=== PATIENT | male | born 1950 | race Two or more races ===

== ENCOUNTER 2020-01-27 14:34 | Inpatient (IN) | payer OTHER ==
[~2020-01-27] VITALS: Ht 170.2 cm; Wt 96.3 kg
[2020-01-27] MEDS ORDERED: METF-960 PO (14:59)
[2020-01-27 15:13] LABS: BASOPHILS % (AUTO) 0.3 % (0.0-2.0); EOSINOPHILS % (AUTO) 0 % (1.0-6.0); HEMATOCRIT 37.6 % (41-53); HEMOGLOBIN 12.6 g/dL (13.5-17.5); LYMPHOCYTES # (AUTO) 0.4 K/uL (1.0-4.8); LYMPHOCYTES % (AUTO) 7.4 % (22.0-44.0); MEAN CORPUSCULAR HGB CONC 33.6 G/dL (31.0-37.0); MEAN CORPUSCULAR VOLUME 89 fL (80-100); MONOCYTES # (AUTO) 0.4 K/uL (0.1-1.0); MONOCYTES % (AUTO) 7.3 % (2.0-9.0); NEUTROPHILS # (AUTO) 4.9 K/uL (1.8-7.7); PLATELET COUNT (AUTO) 231 K/uL (150-450); RED BLOOD CELL COUNT(AUTO) 4.22 MIL/uL (4.50-5.90); RED CELL DISTRIBUTION WIDTH 13.9 % (11.5-14.5)
[2020-01-27 15:28] LABS: D-DIMER 0.84 mg/L FEU (0.00-0.50); PROTHROMBIN TIME 10.6 SEC (9.4-11.6)
[2020-01-27] MEDS ORDERED: AZITHROMYCIN 500 MG/NS 250 ML IV ONE (15:30)
[2020-01-27] MEDS ORDERED: CefTRIAXone 1 GM/DEXTROSE 50 ML IV ONE (15:30)
[2020-01-27 15:35] LABS: ANION GAP 5 mmol/L (8-16); CALCIUM, TOTAL 7.5 mg/dL (8.8-10.5); CARBON DIOXIDE 27 mmol/L (22-29); CHLORIDE 102 mmol/L (98-107); CREATININE 1.02 mg/dL (0.60-1.30); GLUCOSE,RANDOM 195 mg/dL (70-110); POTASSIUM 4.1 mmol/L (3.5-5.1); SODIUM SERUM 134 mmol/L (136-145); UREA NITROGEN, BLOOD 23 mg/dL (7-18)
[2020-01-27 15:36] LABS: GLOMERULAR FILTR. RATE CALC > 60 mL/min (>60)
[2020-01-27 15:41] LABS: B-TYPE NATRIURETIC PEPTIDE 22 pg/mL (0-100)
[2020-01-27 16:00] LABS: ALANINE AMINOTRANSFERASE 40 U/L (12-78); ALBUMIN 2.5 g/dL (3.4-5.0); ALKALINE PHOSPHATASE 56 U/L (46-116); ASPARTATE AMINOTRANSFERASE 55 U/L (15-37); BILIRUBIN,TOTAL 0.7 mg/dL (0.1-1.0); CREATINE KINASE, TOTAL ONLY 295 U/L (39-308); FERRITIN 925 ng/mL (26-388); LACTATE DEHYDROGENASE 451 U/L (85-227); TOTAL PROTEIN, SERUM 6.7 g/dL (6.4-8.2)
[2020-01-27] MEDS ORDERED: ACETAMINOPHEN 500 MG TABLET PO ONE (16:30)
[2020-01-27] MEDS ORDERED: 0.9% SODIUM CHLORIDE 10 ML SYRINGE IVP PRN (16:45)
[2020-01-27] MEDS ORDERED: ACETAMINOPHEN 325 MG TABLET PO PRN ×2 (16:45→17:15)
[2020-01-27] MEDS ORDERED: DEXTROSE 50%-WATER 25 GM/50 ML SYRINGE IVP PRN (17:00)
[2020-01-27] MEDS ORDERED: BENZONATATE 100 MG CAPSULE PO PRN (17:00)
[2020-01-27] MEDS: DEXAMETHASONE SOD PHOS 4 MG/ML VIAL IVP SCH (17:45)
[2020-01-27 21:40] VITALS: BP 107/62
[2020-01-27] MEDS ORDERED: SODIUM CHLORIDE 0.9% 250 ML IV ONE ×2 (21:40→23:43)
[2020-01-27] MEDS: DOCUSATE SODIUM 100 MG CAPSULE PO SCH (22:31)
[2020-01-27] MEDS: ZINC SULFATE 220 MG CAPSULE PO SCH (22:31)
[2020-01-27] MEDS: HEPARIN SODIUM,PORCINE 5,000 UNITS/ML VIAL SQ SCH (22:31)
[2020-01-27] MEDS ORDERED: REMDESIVIR **INVESTIGATIONAL** 200 MG in SODIUM CHLORIDE 0.9% 210 ML IV ONE (23:00)
[2020-01-28 00:20] VITALS: BP 108/60
[2020-01-28 04:23] VITALS: BP 122/68
[2020-01-28] MEDS: INSULIN LISPRO 100 UNITS/ML SQ PRN ×4 (06:15→20:50)
[2020-01-28 07:40] VITALS: BP 110/61
[2020-01-28 08:37] LABS: BASOPHILS % (AUTO) 0.2 % (0.0-2.0); EOSINOPHILS % (AUTO) 0 % (1.0-6.0); HEMATOCRIT 37.5 % (41-53); HEMOGLOBIN 12.9 g/dL (13.5-17.5); LYMPHOCYTES # (AUTO) 0.6 K/uL (1.0-4.8); LYMPHOCYTES % (AUTO) 11.5 % (22.0-44.0); MEAN CORPUSCULAR HEMOGLOBIN 30.6 pg (26.0-34.0); MEAN CORPUSCULAR HGB CONC 34.4 G/dL (31.0-37.0); MEAN CORPUSCULAR VOLUME 89 fL (80-100); MONOCYTES # (AUTO) 0.3 K/uL (0.1-1.0); MONOCYTES % (AUTO) 5.8 % (2.0-9.0); NEUTROPHILS # (AUTO) 4.2 K/uL (1.8-7.7); NEUTROPHILS % (AUTO) 82.5 % (40.0-70.0); PLATELET COUNT (AUTO) 244 K/uL (150-450); RED BLOOD CELL COUNT(AUTO) 4.22 MIL/uL (4.50-5.90); RED CELL DISTRIBUTION WIDTH 14.2 % (11.5-14.5)
[2020-01-28] MEDS: HEPARIN SODIUM,PORCINE 5,000 UNITS/ML VIAL SQ SCH ×3 (08:40→23:40)
[2020-01-28] MEDS: DEXAMETHASONE SOD PHOS 4 MG/ML VIAL IVP SCH (08:40)
[2020-01-28] MEDS: DOCUSATE SODIUM 100 MG CAPSULE PO SCH ×2 (08:41→20:48)
[2020-01-28] MEDS: ZINC SULFATE 220 MG CAPSULE PO SCH ×2 (08:41→20:48)
[2020-01-28 09:21] LABS: ALANINE AMINOTRANSFERASE 38 U/L (12-78); ALBUMIN 2.3 g/dL (3.4-5.0); ALKALINE PHOSPHATASE 56 U/L (46-116); ANION GAP 6 mmol/L (8-16); ASPARTATE AMINOTRANSFERASE 43 U/L (15-37); BILIRUBIN,TOTAL 0.5 mg/dL (0.1-1.0); CALCIUM, TOTAL 7.5 mg/dL (8.8-10.5); CARBON DIOXIDE 27 mmol/L (22-29); CHLORIDE 105 mmol/L (98-107); CREATININE 0.79 mg/dL (0.60-1.30); GLUCOSE,RANDOM 300 mg/dL (70-110); POTASSIUM 4.7 mmol/L (3.5-5.1); SODIUM SERUM 138 mmol/L (136-145); TOTAL PROTEIN, SERUM 5.9 g/dL (6.4-8.2); UREA NITROGEN, BLOOD 23 mg/dL (7-18)
[2020-01-28 09:22] LABS: GLOMERULAR FILTR. RATE CALC > 60 mL/min (>60)
[2020-01-28 11:08] LABS: GLUCOMETER DEV NAME(LOC) 5S.2A; GLUCOSE,POINT OF CARE 263 MG/DL (70-110)
[2020-01-28 11:45] VITALS: BP 107/63
[2020-01-28] MEDS: AZITHROMYCIN 500 MG/NS 250 ML IV SCH (15:29)
[2020-01-28 16:00] VITALS: BP 117/73
[2020-01-28 16:28] LABS: APPEARANCE,URINE CLEAR (CLEAR); BILIRUBIN,URINE NEGATIVE (NEGATIVE); GLUCOSE, URINE (UA) >=1000 mg/dL (NEGATIVE); KETONES,URINE NEGATIVE (NEGATIVE); LEUKOCYTE ESTERASE ,URINE NEGATIVE (NEGATIVE); NITRATE,URINE NEGATIVE (NEGATIVE); OCCULT BLOOD,URINE NEGATIVE (NEGATIVE); PROTEIN,URINE SEE CONFIRM (NEGATIVE)
[2020-01-28 16:42] LABS: BACTERIA,URINE None Seen /HPF (None Seen); RBC,URINE None Seen /HPF (0-2); SQUAMOUS EPITHELIAL CELL,UR Few /LPF (None Seen); SULFOSALICYLIC ACID,URINE 1+ (Negative); WBC,URINE None Seen /HPF (0-5)
[2020-01-28 16:53] LABS: GLUCOMETER DEV NAME(LOC) 5N.3; GLUCOSE,POINT OF CARE 265 MG/DL (70-110)
[2020-01-28] MEDS: MetFORMIN HCL 500 MG TABLET PO SCH (17:21)
[2020-01-28 18:43] LABS: GLUCOMETER DEV NAME(LOC) 5S.2A; GLUCOSE,POINT OF CARE 285 MG/DL (70-110)
[2020-01-28 20:00] VITALS: BP 122/76
[2020-01-28] MEDS: REMDESIVIR **INVESTIGATIONAL** 100 MG in SODIUM CHLORIDE 0.9% 230 ML IV SCH (22:09)
[2020-01-29] VITALS (11 sets, daily range): BP systolic 100–124; BP diastolic 57–74
[2020-01-29] MEDS: INSULIN LISPRO 100 UNITS/ML SQ PRN ×4 (06:36→20:44)
[2020-01-29 07:50] LABS: BASOPHILS % (AUTO) 0.2 % (0.0-2.0); EOSINOPHILS % (AUTO) 0 % (1.0-6.0); HEMATOCRIT 38.5 % (41-53); HEMOGLOBIN 12.9 g/dL (13.5-17.5); LYMPHOCYTES # (AUTO) 0.7 K/uL (1.0-4.8); LYMPHOCYTES % (AUTO) 8.6 % (22.0-44.0); MEAN CORPUSCULAR HGB CONC 33.5 G/dL (31.0-37.0); MEAN CORPUSCULAR VOLUME 90 fL (80-100); MONOCYTES # (AUTO) 0.8 K/uL (0.1-1.0); MONOCYTES % (AUTO) 9.2 % (2.0-9.0); NEUTROPHILS # (AUTO) 7.1 K/uL (1.8-7.7); PLATELET COUNT (AUTO) 288 K/uL (150-450)
[2020-01-29 08:19] LABS: ALANINE AMINOTRANSFERASE 32 U/L (12-78); ALBUMIN 2.2 g/dL (3.4-5.0); ALKALINE PHOSPHATASE 49 U/L (46-116); ANION GAP 6 mmol/L (8-16); ASPARTATE AMINOTRANSFERASE 32 U/L (15-37); BILIRUBIN,TOTAL 0.4 mg/dL (0.1-1.0); C-REACTIVE PROTEIN QUANT 3.24 mg/dL (0.00-0.30); CALCIUM, TOTAL 7.6 mg/dL (8.8-10.5); CARBON DIOXIDE 26 mmol/L (22-29); CHLORIDE 106 mmol/L (98-107); CREATININE 0.81 mg/dL (0.60-1.30); GLUCOSE,RANDOM 255 mg/dL (70-110); POTASSIUM 4.5 mmol/L (3.5-5.1); SODIUM SERUM 138 mmol/L (136-145); TOTAL PROTEIN, SERUM 5.6 g/dL (6.4-8.2); UREA NITROGEN, BLOOD 28 mg/dL (7-18)
[2020-01-29 08:25] LABS: GLOMERULAR FILTR. RATE CALC > 60 mL/min (>60)
[2020-01-29] MEDS: MetFORMIN HCL 500 MG TABLET PO SCH ×2 (08:36→17:43)
[2020-01-29] MEDS: DOCUSATE SODIUM 100 MG CAPSULE PO SCH ×2 (08:37→20:38)
[2020-01-29] MEDS: HEPARIN SODIUM,PORCINE 5,000 UNITS/ML VIAL SQ SCH ×2 (08:37→16:01)
[2020-01-29] MEDS: ZINC SULFATE 220 MG CAPSULE PO SCH ×2 (08:37→20:38)
[2020-01-29] MEDS: DEXAMETHASONE SOD PHOS 4 MG/ML VIAL IVP SCH (08:37)
[2020-01-29 11:47] LABS: GLUCOMETER DEV NAME(LOC) 5S.2A; GLUCOSE,POINT OF CARE 281 MG/DL (70-110)
[2020-01-29] MEDS: AZITHROMYCIN 500 MG/NS 250 ML IV SCH (16:01)
[2020-01-29 21:04] LABS: GLUCOMETER DEV NAME(LOC) 5N.3; GLUCOSE,POINT OF CARE 283 MG/DL (70-110)
[2020-01-29 21:04] LABS: GLUCOMETER DEV NAME(LOC) 5N.3; GLUCOSE,POINT OF CARE 194 MG/DL (70-110)
[2020-01-29 21:04] LABS: GLUCOMETER DEV NAME(LOC) 5N.3; GLUCOSE,POINT OF CARE 214 MG/DL (70-110)
[2020-01-29] MEDS: REMDESIVIR **INVESTIGATIONAL** 100 MG in SODIUM CHLORIDE 0.9% 230 ML IV SCH (21:22)
[2020-01-29] MEDS ORDERED: SODIUM CHLORIDE 0.9% 250 ML IV ONE (22:46)
[2020-01-30] MEDS: HEPARIN SODIUM,PORCINE 5,000 UNITS/ML VIAL SQ SCH ×3 (00:13→17:06)
[2020-01-30 00:20] VITALS: BP 111/64
[2020-01-30 03:56] VITALS: BP 139/73
[2020-01-30] MEDS: INSULIN LISPRO 100 UNITS/ML SQ PRN ×4 (05:41→20:49)
[2020-01-30 06:37] LABS: GLUCOMETER DEV NAME(LOC) 5N.3; GLUCOSE,POINT OF CARE 136 MG/DL (70-110)
[2020-01-30 07:24] LABS: ALANINE AMINOTRANSFERASE 39 U/L (12-78); ALBUMIN 2.2 g/dL (3.4-5.0); ALKALINE PHOSPHATASE 50 U/L (46-116); ANION GAP 7 mmol/L (8-16); ASPARTATE AMINOTRANSFERASE 35 U/L (15-37); BILIRUBIN,TOTAL 0.6 mg/dL (0.1-1.0); CALCIUM, TOTAL 7.7 mg/dL (8.8-10.5); CARBON DIOXIDE 27 mmol/L (22-29); CHLORIDE 106 mmol/L (98-107); CREATININE 0.86 mg/dL (0.60-1.30); FERRITIN 807 ng/mL (26-388); GLUCOSE,RANDOM 148 mg/dL (70-110); POTASSIUM 3.7 mmol/L (3.5-5.1); SODIUM SERUM 140 mmol/L (136-145); TOTAL PROTEIN, SERUM 6.1 g/dL (6.4-8.2); UREA NITROGEN, BLOOD 24 mg/dL (7-18)
[2020-01-30 07:25] LABS: GLOMERULAR FILTR. RATE CALC > 60 mL/min (>60)
[2020-01-30 07:44] VITALS: BP 120/64
[2020-01-30] MEDS: MetFORMIN HCL 500 MG TABLET PO SCH ×2 (08:16→18:13)
[2020-01-30] MEDS: ZINC SULFATE 220 MG CAPSULE PO SCH ×2 (08:16→20:44)
[2020-01-30] MEDS: DEXAMETHASONE SOD PHOS 4 MG/ML VIAL IVP SCH (08:16)
[2020-01-30] MEDS: DOCUSATE SODIUM 100 MG CAPSULE PO SCH ×2 (08:16→20:44)
[2020-01-30 11:29] VITALS: BP 117/67
[2020-01-30 12:28] LABS: GLUCOMETER DEV NAME(LOC) 5S.2A; GLUCOSE,POINT OF CARE 210 MG/DL (70-110)
[2020-01-30 12:28] LABS: GLUCOMETER DEV NAME(LOC) 5S.2A; GLUCOSE,POINT OF CARE 169 MG/DL (70-110)
[2020-01-30 16:01] VITALS: BP 133/69
[2020-01-30] MEDS: AZITHROMYCIN 500 MG/NS 250 ML IV SCH (17:06)
[2020-01-30 17:30] LABS: GLUCOMETER DEV NAME(LOC) 5S.2B; GLUCOSE,POINT OF CARE 220 MG/DL (70-110)
[2020-01-30 20:17] VITALS: BP 129/75
[2020-01-30] MEDS: REMDESIVIR **INVESTIGATIONAL** 100 MG in SODIUM CHLORIDE 0.9% 230 ML IV SCH (22:01)
[2020-01-30] MEDS ORDERED: SODIUM CHLORIDE 0.9% 250 ML IV ONE (23:42)
[2020-01-31] VITALS (9 sets, daily range): BP systolic 103–133; BP diastolic 61–90
[2020-01-31 03:43] LABS: GLUCOMETER DEV NAME(LOC) 5S.2B; GLUCOSE,POINT OF CARE 225 MG/DL (70-110)
[2020-01-31 06:56] LABS: BASOPHILS % (AUTO) 0.2 % (0.0-2.0); EOSINOPHILS % (AUTO) 0.2 % (1.0-6.0); HEMATOCRIT 36.8 % (41-53); HEMOGLOBIN 12.5 g/dL (13.5-17.5); LYMPHOCYTES # (AUTO) 1.5 K/uL (1.0-4.8); LYMPHOCYTES % (AUTO) 17.6 % (22.0-44.0); MEAN CORPUSCULAR HEMOGLOBIN 30.2 pg (26.0-34.0); MEAN CORPUSCULAR HGB CONC 33.9 G/dL (31.0-37.0); MEAN CORPUSCULAR VOLUME 89 fL (80-100); MONOCYTES # (AUTO) 0.7 K/uL (0.1-1.0); MONOCYTES % (AUTO) 7.7 % (2.0-9.0); NEUTROPHILS # (AUTO) 6.3 K/uL (1.8-7.7); NEUTROPHILS % (AUTO) 74.3 % (40.0-70.0); PLATELET COUNT (AUTO) 350 K/uL (150-450); RED BLOOD CELL COUNT(AUTO) 4.13 MIL/uL (4.50-5.90)
[2020-01-31 07:34] LABS: ALANINE AMINOTRANSFERASE 80 U/L (12-78); ALBUMIN 2.4 g/dL (3.4-5.0); ALKALINE PHOSPHATASE 59 U/L (46-116); ANION GAP 6 mmol/L (8-16); ASPARTATE AMINOTRANSFERASE 96 U/L (15-37); BILIRUBIN,TOTAL 0.8 mg/dL (0.1-1.0); C-REACTIVE PROTEIN QUANT 2.21 mg/dL (0.00-0.30); CARBON DIOXIDE 28 mmol/L (22-29); CHLORIDE 104 mmol/L (98-107); CREATININE 0.91 mg/dL (0.60-1.30); FERRITIN 727 ng/mL (26-388); GLUCOSE,RANDOM 145 mg/dL (70-110); POTASSIUM 3.5 mmol/L (3.5-5.1); SODIUM SERUM 138 mmol/L (136-145); TOTAL PROTEIN, SERUM 6.4 g/dL (6.4-8.2); UREA NITROGEN, BLOOD 17 mg/dL (7-18)
[2020-01-31 07:38] LABS: GLOMERULAR FILTR. RATE CALC > 60 mL/min (>60)
[2020-01-31 07:46] LABS: GLUCOMETER DEV NAME(LOC) 5S.2B; GLUCOSE,POINT OF CARE 131 MG/DL (70-110)
[2020-01-31] MEDS: HEPARIN SODIUM,PORCINE 5,000 UNITS/ML VIAL SQ SCH ×3 (09:53→16:40)
[2020-01-31] MEDS: DOCUSATE SODIUM 100 MG CAPSULE PO SCH ×2 (09:53→20:33)
[2020-01-31] MEDS: MetFORMIN HCL 500 MG TABLET PO SCH ×2 (09:53→17:37)
[2020-01-31] MEDS: ZINC SULFATE 220 MG CAPSULE PO SCH ×2 (09:53→20:33)
[2020-01-31] MEDS: DEXAMETHASONE SOD PHOS 4 MG/ML VIAL IVP SCH (09:56)
[2020-01-31 12:29] LABS: GLUCOMETER DEV NAME(LOC) 5S.2B; GLUCOSE,POINT OF CARE 178 MG/DL (70-110)
[2020-01-31] MEDS: INSULIN LISPRO 100 UNITS/ML SQ PRN ×3 (12:35→20:45)
[2020-01-31] MEDS: AZITHROMYCIN 500 MG/NS 250 ML IV SCH (16:40)
[2020-02-01] VITALS: BP 126/67
[2020-02-01 04:00] VITALS: BP 137/74
[2020-02-01 05:56] LABS: ALANINE AMINOTRANSFERASE 111 U/L (12-78); ALBUMIN 2.4 g/dL (3.4-5.0); ALKALINE PHOSPHATASE 62 U/L (46-116); ANION GAP 6 mmol/L (8-16); ASPARTATE AMINOTRANSFERASE 100 U/L (15-37); BILIRUBIN,TOTAL 0.8 mg/dL (0.1-1.0); CARBON DIOXIDE 28 mmol/L (22-29); CHLORIDE 105 mmol/L (98-107); CREATININE 0.86 mg/dL (0.60-1.30); GLUCOSE,RANDOM 135 mg/dL (70-110); POTASSIUM 4.1 mmol/L (3.5-5.1); SODIUM SERUM 139 mmol/L (136-145); TOTAL PROTEIN, SERUM 6.8 g/dL (6.4-8.2); UREA NITROGEN, BLOOD 16 mg/dL (7-18)
[2020-02-01 06:12] LABS: GLOMERULAR FILTR. RATE CALC > 60 mL/min (>60)
[2020-02-01] MEDS: HEPARIN SODIUM,PORCINE 5,000 UNITS/ML VIAL SQ SCH ×4 (07:58→23:59)
[2020-02-01] MEDS: ZINC SULFATE 220 MG CAPSULE PO SCH ×2 (07:58→20:15)
[2020-02-01] MEDS: MetFORMIN HCL 500 MG TABLET PO SCH ×2 (07:58→17:20)
[2020-02-01] MEDS: DEXAMETHASONE SOD PHOS 4 MG/ML VIAL IVP SCH (07:59)
[2020-02-01] MEDS: DOCUSATE SODIUM 100 MG CAPSULE PO SCH ×2 (07:59→20:15)
[2020-02-01 08:22] VITALS: BP 122/71
[2020-02-01 08:46] LABS: GLUCOMETER DEV NAME(LOC) 5N.3; GLUCOSE,POINT OF CARE 180 MG/DL (70-110)
[2020-02-01 11:34] LABS: GLUCOMETER DEV NAME(LOC) 5S.2B; GLUCOSE,POINT OF CARE 122 MG/DL (70-110)
[2020-02-01] MEDS: INSULIN LISPRO 100 UNITS/ML SQ PRN ×3 (12:14→20:53)
[2020-02-01 12:20] VITALS: BP 132/68
[2020-02-01 16:09] VITALS: BP 120/67
[2020-02-01] MEDS: AZITHROMYCIN 500 MG/NS 250 ML IV SCH (17:20)
[2020-02-01 18:04] LABS: GLUCOMETER DEV NAME(LOC) 5N.1; GLUCOSE,POINT OF CARE 195 MG/DL (70-110)
[2020-02-01 20:00] VITALS: BP 122/62
[2020-02-01 20:24] LABS: GLUCOMETER DEV NAME(LOC) 5S.2B; GLUCOSE,POINT OF CARE 181 MG/DL (70-110)
[2020-02-01 20:32] LABS: GLUCOMETER DEV NAME(LOC) 5N.1; GLUCOSE,POINT OF CARE 163 MG/DL (70-110)
[2020-02-02 00:10] VITALS: BP 116/58
[2020-02-02 04:12] VITALS: BP 118/58
[2020-02-02 06:55] LABS: BASOPHILS % (AUTO) 0.3 % (0.0-2.0); EOSINOPHILS % (AUTO) 1.1 % (1.0-6.0); HEMATOCRIT 34.7 % (41-53); HEMOGLOBIN 11.5 g/dL (13.5-17.5); LYMPHOCYTES # (AUTO) 1.6 K/uL (1.0-4.8); LYMPHOCYTES % (AUTO) 22.9 % (22.0-44.0); MEAN CORPUSCULAR HEMOGLOBIN 29.6 pg (26.0-34.0); MEAN CORPUSCULAR HGB CONC 33.1 G/dL (31.0-37.0); MEAN CORPUSCULAR VOLUME 90 fL (80-100); MONOCYTES # (AUTO) 0.7 K/uL (0.1-1.0); MONOCYTES % (AUTO) 9.6 % (2.0-9.0); NEUTROPHILS # (AUTO) 4.5 K/uL (1.8-7.7); NEUTROPHILS % (AUTO) 66.1 % (40.0-70.0); PLATELET COUNT (AUTO) 373 K/uL (150-450); RED BLOOD CELL COUNT(AUTO) 3.88 MIL/uL (4.50-5.90)
[2020-02-02 07:13] LABS: GLUCOMETER DEV NAME(LOC) 5N.1; GLUCOSE,POINT OF CARE 94 MG/DL (70-110)
[2020-02-02 07:45] VITALS: BP 112/82
[2020-02-02 07:45] LABS: ALANINE AMINOTRANSFERASE 119 U/L (12-78); ALBUMIN 2.3 g/dL (3.4-5.0); ALKALINE PHOSPHATASE 56 U/L (46-116); ANION GAP 4 mmol/L (8-16); ASPARTATE AMINOTRANSFERASE 93 U/L (15-37); BILIRUBIN,TOTAL 0.7 mg/dL (0.1-1.0); C-REACTIVE PROTEIN QUANT 1.69 mg/dL (0.00-0.30); CALCIUM, TOTAL 8.4 mg/dL (8.8-10.5); CARBON DIOXIDE 30 mmol/L (22-29); CHLORIDE 104 mmol/L (98-107); CREATININE 0.78 mg/dL (0.60-1.30); FERRITIN 653 ng/mL (26-388); GLUCOSE,RANDOM 102 mg/dL (70-110); POTASSIUM 4.6 mmol/L (3.5-5.1); SODIUM SERUM 138 mmol/L (136-145); TOTAL PROTEIN, SERUM 6.2 g/dL (6.4-8.2); UREA NITROGEN, BLOOD 14 mg/dL (7-18)
[2020-02-02 07:46] LABS: GLOMERULAR FILTR. RATE CALC > 60 mL/min (>60)
[2020-02-02] MEDS: HEPARIN SODIUM,PORCINE 5,000 UNITS/ML VIAL SQ SCH ×3 (08:38→23:19)
[2020-02-02] MEDS: DEXAMETHASONE SOD PHOS 4 MG/ML VIAL IVP SCH (08:39)
[2020-02-02] MEDS: ZINC SULFATE 220 MG CAPSULE PO SCH ×2 (08:39→20:05)
[2020-02-02] MEDS: DOCUSATE SODIUM 100 MG CAPSULE PO SCH ×2 (08:40→20:05)
[2020-02-02] MEDS: MetFORMIN HCL 500 MG TABLET PO SCH ×2 (08:40→20:05)
[2020-02-02 11:40] VITALS: BP 119/64
[2020-02-02] MEDS: INSULIN LISPRO 100 UNITS/ML SQ PRN ×3 (11:52→20:21)
[2020-02-02 13:29] LABS: GLUCOMETER DEV NAME(LOC) 5N.1; GLUCOSE,POINT OF CARE 204 MG/DL (70-110)
[2020-02-02 15:39] VITALS: BP 115/67
[2020-02-02] MEDS: AZITHROMYCIN 500 MG/NS 250 ML IV SCH (16:22)
[2020-02-02 19:38] VITALS: BP 108/58
[2020-02-03 00:14] VITALS: BP 105/67
[2020-02-03 00:40] LABS: GLUCOMETER DEV NAME(LOC) 5N.1; GLUCOSE,POINT OF CARE 184 MG/DL (70-110)
[2020-02-03 00:40] LABS: GLUCOMETER DEV NAME(LOC) 5N.1; GLUCOSE,POINT OF CARE 154 MG/DL (70-110)
[2020-02-03 04:42] VITALS: BP 110/59
[2020-02-03 05:55] LABS: GLUCOMETER DEV NAME(LOC) 5N.3; GLUCOSE,POINT OF CARE 91 MG/DL (70-110)
[2020-02-03 07:31] LABS: ALANINE AMINOTRANSFERASE 162 U/L (12-78); ALBUMIN 2.7 g/dL (3.4-5.0); ALKALINE PHOSPHATASE 69 U/L (46-116); ANION GAP 8 mmol/L (8-16); ASPARTATE AMINOTRANSFERASE 112 U/L (15-37); BILIRUBIN,TOTAL 0.8 mg/dL (0.1-1.0); C-REACTIVE PROTEIN QUANT 1.05 mg/dL (0.00-0.30); CALCIUM, TOTAL 8.5 mg/dL (8.8-10.5); CARBON DIOXIDE 29 mmol/L (22-29); CHLORIDE 103 mmol/L (98-107); CREATININE 0.92 mg/dL (0.60-1.30); FERRITIN 736 ng/mL (26-388); GLUCOSE,RANDOM 97 mg/dL (70-110); POTASSIUM 3.7 mmol/L (3.5-5.1); SODIUM SERUM 140 mmol/L (136-145); TOTAL PROTEIN, SERUM 7.1 g/dL (6.4-8.2); UREA NITROGEN, BLOOD 18 mg/dL (7-18)
[2020-02-03 07:36] LABS: GLOMERULAR FILTR. RATE CALC > 60 mL/min (>60)
[2020-02-03 08:11] VITALS: BP 117/66
[2020-02-03] MEDS: ZINC SULFATE 220 MG CAPSULE PO SCH ×2 (08:49→22:17)
[2020-02-03] MEDS: MetFORMIN HCL 500 MG TABLET PO SCH ×2 (08:49→17:57)
[2020-02-03] MEDS: HEPARIN SODIUM,PORCINE 5,000 UNITS/ML VIAL SQ SCH ×2 (08:49→16:41)
[2020-02-03] MEDS: DOCUSATE SODIUM 100 MG CAPSULE PO SCH ×2 (08:49→22:17)
[2020-02-03] MEDS: DEXAMETHASONE SOD PHOS 4 MG/ML VIAL IVP SCH ×2 (08:52→10:32)
[2020-02-03 11:40] VITALS: BP 132/59
[2020-02-03 12:22] LABS: GLUCOMETER DEV NAME(LOC) 5N.3; GLUCOSE,POINT OF CARE 147 MG/DL (70-110)
[2020-02-03] MEDS: INSULIN LISPRO 100 UNITS/ML SQ PRN ×2 (12:22→18:01)
[2020-02-03 16:24] VITALS: BP 98/57
[2020-02-03 17:59] LABS: GLUCOMETER DEV NAME(LOC) 5N.3; GLUCOSE,POINT OF CARE 182 MG/DL (70-110)
[2020-02-03 21:06] VITALS: BP 122/88
[2020-02-04 06:53] LABS: BASOPHILS % (AUTO) 0.1 % (0.0-2.0); EOSINOPHILS % (AUTO) 1.1 % (1.0-6.0); HEMATOCRIT 38.3 % (41-53); LYMPHOCYTES # (AUTO) 1.6 K/uL (1.0-4.8); LYMPHOCYTES % (AUTO) 21.2 % (22.0-44.0); MEAN CORPUSCULAR HEMOGLOBIN 30.5 pg (26.0-34.0); MEAN CORPUSCULAR VOLUME 90 fL (80-100); MONOCYTES # (AUTO) 0.7 K/uL (0.1-1.0); MONOCYTES % (AUTO) 9.4 % (2.0-9.0); NEUTROPHILS % (AUTO) 68.2 % (40.0-70.0); PLATELET COUNT (AUTO) 405 K/uL (150-450); RED BLOOD CELL COUNT(AUTO) 4.27 MIL/uL (4.50-5.90); RED CELL DISTRIBUTION WIDTH 14.2 % (11.5-14.5)
[2020-02-04 07:23] LABS: ALANINE AMINOTRANSFERASE 136 U/L (12-78); ALBUMIN 2.6 g/dL (3.4-5.0); ALKALINE PHOSPHATASE 67 U/L (46-116); ANION GAP 6 mmol/L (8-16); ASPARTATE AMINOTRANSFERASE 70 U/L (15-37); BILIRUBIN,TOTAL 0.7 mg/dL (0.1-1.0); C-REACTIVE PROTEIN QUANT 0.56 mg/dL (0.00-0.30); CALCIUM, TOTAL 8.7 mg/dL (8.8-10.5); CARBON DIOXIDE 26 mmol/L (22-29); CHLORIDE 104 mmol/L (98-107); CREATININE 0.79 mg/dL (0.60-1.30); FERRITIN 626 ng/mL (26-388); GLUCOSE,RANDOM 114 mg/dL (70-110); SODIUM SERUM 136 mmol/L (136-145); TOTAL PROTEIN, SERUM 6.8 g/dL (6.4-8.2); UREA NITROGEN, BLOOD 16 mg/dL (7-18)
[2020-02-04 07:25] LABS: GLOMERULAR FILTR. RATE CALC > 60 mL/min (>60)
[2020-02-04 07:36] LABS: GLUCOMETER DEV NAME(LOC) 5N.1; GLUCOSE,POINT OF CARE 174 MG/DL (70-110)
[2020-02-04 07:36] LABS: GLUCOMETER DEV NAME(LOC) 5N.1; GLUCOSE,POINT OF CARE 108 MG/DL (70-110)
[2020-02-04] MEDS: HEPARIN SODIUM,PORCINE 5,000 UNITS/ML VIAL SQ SCH ×4 (08:26→23:48)
[2020-02-04] MEDS: ZINC SULFATE 220 MG CAPSULE PO SCH ×2 (08:27→21:19)
[2020-02-04] MEDS: DOCUSATE SODIUM 100 MG CAPSULE PO SCH ×2 (08:27→21:19)
[2020-02-04] MEDS: MetFORMIN HCL 500 MG TABLET PO SCH ×2 (08:27→17:57)
[2020-02-04] MEDS: DEXAMETHASONE SOD PHOS 4 MG/ML VIAL IVP SCH (08:27)
[2020-02-04 08:41] VITALS: BP 103/60
[2020-02-04] MEDS: INSULIN LISPRO 100 UNITS/ML SQ PRN ×3 (12:01→21:25)
[2020-02-04 12:22] LABS: GLUCOMETER DEV NAME(LOC) 5N.3; GLUCOSE,POINT OF CARE 160 MG/DL (70-110)
[2020-02-04 15:59] VITALS: BP 105/57
[2020-02-04] MEDS: ALBUTEROL SULFATE HFA 90 MCG/PUFF 8 GM INHALER IH PRN (16:17)
[2020-02-04 18:36] LABS: GLUCOMETER DEV NAME(LOC) 5N.3; GLUCOSE,POINT OF CARE 124 MG/DL (70-110)
[2020-02-04 20:00] VITALS: BP 110/54
[2020-02-04 22:59] LABS: GLUCOMETER DEV NAME(LOC) 5N.1; GLUCOSE,POINT OF CARE 141 MG/DL (70-110)
[2020-02-05] VITALS: BP 109/65
[2020-02-05 04:00] VITALS: BP 98/63
[2020-02-05 06:31] LABS: BASOPHILS % (AUTO) 0.3 % (0.0-2.0); EOSINOPHILS % (AUTO) 1.3 % (1.0-6.0); HEMATOCRIT 38.3 % (41-53); HEMOGLOBIN 12.8 g/dL (13.5-17.5); LYMPHOCYTES # (AUTO) 2.1 K/uL (1.0-4.8); LYMPHOCYTES % (AUTO) 28.3 % (22.0-44.0); MEAN CORPUSCULAR HGB CONC 33.5 G/dL (31.0-37.0); MEAN CORPUSCULAR VOLUME 90 fL (80-100); MONOCYTES # (AUTO) 0.7 K/uL (0.1-1.0); MONOCYTES % (AUTO) 9.4 % (2.0-9.0); NEUTROPHILS # (AUTO) 4.5 K/uL (1.8-7.7); NEUTROPHILS % (AUTO) 60.7 % (40.0-70.0); PLATELET COUNT (AUTO) 373 K/uL (150-450); RED BLOOD CELL COUNT(AUTO) 4.28 MIL/uL (4.50-5.90); RED CELL DISTRIBUTION WIDTH 14.3 % (11.5-14.5)
[2020-02-05 07:08] LABS: ALANINE AMINOTRANSFERASE 122 U/L (12-78); ALBUMIN 2.6 g/dL (3.4-5.0); ALKALINE PHOSPHATASE 65 U/L (46-116); ANION GAP 7 mmol/L (8-16); ASPARTATE AMINOTRANSFERASE 62 U/L (15-37); BILIRUBIN,TOTAL 0.7 mg/dL (0.1-1.0); C-REACTIVE PROTEIN QUANT 0.24 mg/dL (0.00-0.30); CALCIUM, TOTAL 8.7 mg/dL (8.8-10.5); CARBON DIOXIDE 26 mmol/L (22-29); CHLORIDE 105 mmol/L (98-107); FERRITIN 577 ng/mL (26-388); GLOMERULAR FILTR. RATE CALC > 60 mL/min (>60); GLUCOSE,RANDOM 103 mg/dL (70-110); POTASSIUM 4.1 mmol/L (3.5-5.1); SODIUM SERUM 138 mmol/L (136-145); TOTAL PROTEIN, SERUM 6.7 g/dL (6.4-8.2); UREA NITROGEN, BLOOD 16 mg/dL (7-18)
[2020-02-05 07:33] LABS: GLUCOMETER DEV NAME(LOC) 5N.3; GLUCOSE,POINT OF CARE 102 MG/DL (70-110)
[2020-02-05] MEDS: MetFORMIN HCL 500 MG TABLET PO SCH ×2 (07:52→16:53)
[2020-02-05] MEDS: DEXAMETHASONE SOD PHOS 4 MG/ML VIAL IVP SCH (07:53)
[2020-02-05] MEDS: DOCUSATE SODIUM 100 MG CAPSULE PO SCH ×2 (07:53→21:07)
[2020-02-05] MEDS: HEPARIN SODIUM,PORCINE 5,000 UNITS/ML VIAL SQ SCH ×3 (07:53→23:57)
[2020-02-05] MEDS: ZINC SULFATE 220 MG CAPSULE PO SCH ×2 (07:53→21:08)
[2020-02-05 08:04] VITALS: BP 107/59
[2020-02-05 11:25] VITALS: BP 110/64
[2020-02-05] MEDS: INSULIN LISPRO 100 UNITS/ML SQ PRN ×3 (11:52→21:17)
[2020-02-05 12:35] LABS: GLUCOMETER DEV NAME(LOC) 5N.1; GLUCOSE,POINT OF CARE 181 MG/DL (70-110)
[2020-02-05 16:00] VITALS: BP 117/68
[2020-02-05] MEDS: ALBUTEROL SULFATE HFA 90 MCG/PUFF 8 GM INHALER IH PRN ×2 (16:29→21:13)
[2020-02-05 17:19] LABS: GLUCOMETER DEV NAME(LOC) 5N.1; GLUCOSE,POINT OF CARE 149 MG/DL (70-110)
[2020-02-05 19:59] VITALS: BP 103/53
[2020-02-06] VITALS: BP 110/63
[2020-02-06 00:58] LABS: GLUCOMETER DEV NAME(LOC) 5N.1; GLUCOSE,POINT OF CARE 151 MG/DL (70-110)
[2020-02-06] MEDS: ALBUTEROL SULFATE HFA 90 MCG/PUFF 8 GM INHALER IH PRN ×4 (01:30→18:42)
[2020-02-06 04:57] VITALS: BP 106/58
[2020-02-06 07:05] LABS: GLUCOMETER DEV NAME(LOC) 5N.1; GLUCOSE,POINT OF CARE 96 MG/DL (70-110)
[2020-02-06] MEDS: MetFORMIN HCL 500 MG TABLET PO SCH ×2 (08:09→17:15)
[2020-02-06] MEDS: HEPARIN SODIUM,PORCINE 5,000 UNITS/ML VIAL SQ SCH ×2 (08:09→17:17)
[2020-02-06] MEDS: ZINC SULFATE 220 MG CAPSULE PO SCH ×2 (08:09→21:09)
[2020-02-06] MEDS: DEXAMETHASONE SOD PHOS 4 MG/ML VIAL IVP SCH (08:09)
[2020-02-06] MEDS: DOCUSATE SODIUM 100 MG CAPSULE PO SCH ×2 (08:09→21:09)
[2020-02-06 08:32] VITALS: BP 123/56
[2020-02-06] MEDS: INSULIN LISPRO 100 UNITS/ML SQ PRN ×2 (12:09→17:20)
[2020-02-06 12:27] VITALS: BP 114/64
[2020-02-06 12:36] LABS: GLUCOMETER DEV NAME(LOC) 5N.3; GLUCOSE,POINT OF CARE 163 MG/DL (70-110)
[2020-02-06 16:00] VITALS: BP 115/67
[2020-02-06 17:38] LABS: GLUCOMETER DEV NAME(LOC) 5N.1; GLUCOSE,POINT OF CARE 144 MG/DL (70-110)
[2020-02-06 20:38] VITALS: BP 105/69
[2020-02-06 20:51] LABS: GLUCOMETER DEV NAME(LOC) 5S.2B; GLUCOSE,POINT OF CARE 155 MG/DL (70-110)
[2020-02-07] VITALS (7 sets, daily range): BP systolic 106–117; BP diastolic 58–76
[2020-02-07] MEDS: HEPARIN SODIUM,PORCINE 5,000 UNITS/ML VIAL SQ SCH ×4 (00:31→23:30)
[2020-02-07 06:19] LABS: GLUCOMETER DEV NAME(LOC) 5N.1; GLUCOSE,POINT OF CARE 108 MG/DL (70-110)
[2020-02-07 07:22] LABS: ALANINE AMINOTRANSFERASE 110 U/L (12-78); ALBUMIN 2.7 g/dL (3.4-5.0); ALKALINE PHOSPHATASE 69 U/L (46-116); ANION GAP 6 mmol/L (8-16); ASPARTATE AMINOTRANSFERASE 44 U/L (15-37); BILIRUBIN,TOTAL 0.6 mg/dL (0.1-1.0); C-REACTIVE PROTEIN QUANT 0.16 mg/dL (0.00-0.30); CALCIUM, TOTAL 8.8 mg/dL (8.8-10.5); CARBON DIOXIDE 26 mmol/L (22-29); CHLORIDE 104 mmol/L (98-107); CREATININE 0.75 mg/dL (0.60-1.30); FERRITIN 510 ng/mL (26-388); GLUCOSE,RANDOM 115 mg/dL (70-110); POTASSIUM 3.9 mmol/L (3.5-5.1); SODIUM SERUM 136 mmol/L (136-145); TOTAL PROTEIN, SERUM 6.9 g/dL (6.4-8.2); UREA NITROGEN, BLOOD 17 mg/dL (7-18)
[2020-02-07 07:25] LABS: GLOMERULAR FILTR. RATE CALC > 60 mL/min (>60)
[2020-02-07] MEDS: ZINC SULFATE 220 MG CAPSULE PO SCH ×2 (07:57→20:59)
[2020-02-07] MEDS: DOCUSATE SODIUM 100 MG CAPSULE PO SCH ×2 (07:57→20:59)
[2020-02-07] MEDS: MetFORMIN HCL 500 MG TABLET PO SCH ×2 (07:57→17:19)
[2020-02-07] MEDS ORDERED: DEXAMETHASONE 4 MG TABLET PO SCH (09:00)
[2020-02-07] MEDS: INSULIN LISPRO 100 UNITS/ML SQ PRN ×3 (11:46→21:05)
[2020-02-08 05:00] VITALS: BP 105/61
[2020-02-08 06:20] LABS: GLUCOMETER DEV NAME(LOC) 5N.3; GLUCOSE,POINT OF CARE 176 MG/DL (70-110)
[2020-02-08] MEDS: ZINC SULFATE 220 MG CAPSULE PO SCH ×2 (08:00→21:37)
[2020-02-08] MEDS: MetFORMIN HCL 500 MG TABLET PO SCH ×2 (08:00→17:11)
[2020-02-08] MEDS: DOCUSATE SODIUM 100 MG CAPSULE PO SCH ×2 (08:00→21:00)
[2020-02-08] MEDS: HEPARIN SODIUM,PORCINE 5,000 UNITS/ML VIAL SQ SCH ×3 (08:00→23:10)
[2020-02-08 08:10] VITALS: BP 110/57
[2020-02-08 08:21] LABS: GLUCOMETER DEV NAME(LOC) 5N.1; GLUCOSE,POINT OF CARE 147 MG/DL (70-110)
[2020-02-08 08:21] LABS: GLUCOMETER DEV NAME(LOC) 5N.1; GLUCOSE,POINT OF CARE 103 MG/DL (70-110)
[2020-02-08 08:21] LABS: GLUCOMETER DEV NAME(LOC) 5N.1; GLUCOSE,POINT OF CARE 138 MG/DL (70-110)
[2020-02-08 11:25] VITALS: BP 102/59
[2020-02-08 14:51] LABS: GLUCOMETER DEV NAME(LOC) 5N.3; GLUCOSE,POINT OF CARE 116 MG/DL (70-110)
[2020-02-08 16:19] VITALS: BP 105/61
[2020-02-08 19:40] VITALS: BP 108/84
[2020-02-08] MEDS: INSULIN LISPRO 100 UNITS/ML SQ PRN (21:38)
[2020-02-08 21:43] VITALS: BP 102/62
[2020-02-08 21:55] LABS: GLUCOMETER DEV NAME(LOC) 6S.1; GLUCOSE,POINT OF CARE 145 MG/DL (70-110)
[2020-02-09 04:19] VITALS: BP 104/67
[2020-02-09 07:15] LABS: GLUCOMETER DEV NAME(LOC) 5N.1; GLUCOSE,POINT OF CARE 119 MG/DL (70-110)
[2020-02-09 08:15] VITALS: BP 100/73
[2020-02-09] MEDS: HEPARIN SODIUM,PORCINE 5,000 UNITS/ML VIAL SQ SCH ×2 (08:59→16:18)
[2020-02-09] MEDS: MetFORMIN HCL 500 MG TABLET PO SCH ×2 (08:59→17:55)
[2020-02-09] MEDS: ZINC SULFATE 220 MG CAPSULE PO SCH (08:59)
[2020-02-09] MEDS: DOCUSATE SODIUM 100 MG CAPSULE PO SCH (08:59)
[2020-02-09] MEDS: INSULIN LISPRO 100 UNITS/ML SQ PRN ×2 (12:06→17:54)
[2020-02-09 12:53] LABS: GLUCOMETER DEV NAME(LOC) 4E.2; GLUCOSE,POINT OF CARE 131 MG/DL (70-110)
[2020-02-09 12:53] LABS: GLUCOMETER DEV NAME(LOC) 4E.2; GLUCOSE,POINT OF CARE 102 MG/DL (70-110)
[2020-02-09 19:30] VITALS: BP 106/66
[2020-02-09 22:23] LABS: GLUCOMETER DEV NAME(LOC) 4E.2; GLUCOSE,POINT OF CARE 128 MG/DL (70-110)
== END 2020-02-09 20:20 | DRG 177 ==
LOC: EMS 14:36 → 5N 17:01 → UNDOADMIN 17:05 → 5N 02-08 11:30 → 6N 02-08 21:07
PROVIDERS: ADMIT Internal Medicine; ATTEND Internal Medicine
PROC: XW13325 Transfusion of Convalescent Plasma (Nonautologous) into Peripheral Vein, Percutaneous Approach, New Technology Group 5 (ICD-10-PCS; 2020-01-28)
PROC: XW033E5 Introduction of Remdesivir Anti-infective into Peripheral Vein, Percutaneous Approach, New Technology Group 5 (ICD-10-PCS; 2020-01-28)
PROC: 30233K1 Transfusion of Nonautologous Frozen Plasma into Peripheral Vein, Percutaneous Approach (ICD-10-PCS; principal; 2020-01-31)
DX: U07.1 COVID-19 (principal); J12.89 Other viral pneumonia; J96.01 Acute respiratory failure with hypoxia; E43 Unspecified severe protein-calorie malnutrition; E66.9 Obesity, unspecified; E11.65 Type 2 diabetes mellitus with hyperglycemia; E11.9 Type 2 diabetes mellitus without complications; D72.810 Lymphocytopenia; D64.9 Anemia, unspecified; Z83.3 Family history of diabetes mellitus; Z68.34 Body mass index [BMI] 34.0-34.9, adult
CPT/HCPCS: 82728; 83615; 84145; 85379; 86140; 86900; 86901; 86927; 87426; 93005; 97110; 97116; 97162; 97530; 99291; J0456; J0696; J1100; J1644; J3535; J7050; J8540; 36415-L1; 36415-TC; 71045-TC; U0003-CS